=== PATIENT | female | born 2000 | race Caucasian/White ===

== ENCOUNTER 2023-10-08 12:21 | Emergency (ER) | payer BC ==
[2023-10-08] MEDS ORDERED: Ibuprofen 800 MG TAB ONE (14:50)
== END 2023-10-08 14:49 | disposition home or self-care (01) ==
LOC: MADERS 12:21
DX: S93.601A Unspecified sprain of right foot, initial encounter (principal); X50.0XXA Overexertion from strenuous movement or load, initial encounter